=== PATIENT | male | born 1975 | race Caucasian/White ===

== ENCOUNTER 2019-09-10 05:33 | Outpatient (CLI) | payer OTHER ==
[~2019-09-10] VITALS: Ht 188 cm; Wt 106.8 kg
[~2019-09-10 05:33] MED LIST: MECL-124 PO
== END 2019-09-10 16:04 | disposition home or self-care (01) ==
LOC: PREOP 05:33
PROVIDERS: ATTEND Surgery
DX: Z01.818 Encounter for other preprocedural examination (principal)

== ENCOUNTER 2021-01-01 05:31 | Outpatient (RCR) | payer OTHER ==
[~2021-01-01] VITALS: Ht 188 cm; Wt 106.8 kg
== END 2021-01-01 12:34 | disposition home or self-care (01) ==
LOC: PREOP 05:31
PROVIDERS: ATTEND Surgery
DX: Z01.812 Encounter for preprocedural laboratory examination (principal); K21.9 Gastro-esophageal reflux disease without esophagitis; Z20.822 Contact with and (suspected) exposure to COVID-19
CPT/HCPCS: 87635

== ENCOUNTER 2021-01-05 11:26 | Day surgery (SDC) | payer OTHER ==
[~2021-01-05] VITALS: Ht 188 cm; Wt 106.0 kg
[2021-01-05] VITALS (7 sets, daily range): BP systolic 129–140; BP diastolic 72–87
[~2021-01-05 11:26] MED LIST changes: +LACTATED RINGERS 1,000 ML IV ONE
[2021-01-05] MEDS ORDERED: LACTATED RINGERS 1,000 ML IV STA (11:29)
[2021-01-05] MEDS ORDERED: HURRICAINE EXT TUBE (BENZOCAINE) XX PRN (11:30)
[2021-01-05] MEDS ORDERED: proPOfol 200 MG/20 ML (DIPRIVAN) VIAL IV ONE ×2 (12:20→13:00)
[2021-01-05] MEDS ORDERED: MIDAZOLAM 2 MG/2 ML (VERSED) VIAL ONE (12:20)
--- NOTE | 2021-01-05 12:31 | Progress Note-Pre Operative ---
Pre-Operative Progress Note H&P Reviewed The H&P was reviewed, patient examined and no changes noted. Date Seen by Provider: Jan 05, 2021 Time Seen by Provider: 12: Date H&P Reviewed: Jan 05, 2021 Time H&P Reviewed: 12:31 Pre-Operative Diagnosis: gerd n/v POOL WOODARD DO Jan 05, 2021 12:31
[2021-01-05] MEDS ORDERED: HURRICAINE EXT TUBE (BENZOCAINE) ONE (12:49)
--- NOTE | 2021-01-05 13:25 | Progress Note-Post Operative ---
Post-Operative Progess Note Surgeon (s)/Residential Building Inspector (s) Surgeon POOL WOODARD DO Residential Building Inspector: na Pre-Operative Diagnosis gerd n/v Post-Operative Diagnosis esophageal ulcer, hiatal hernia Procedure & Operative Findings Date of Procedure 01/05/21 Procedure Performed/Findings egd c biopsies Anesthesia Type per blending supervisor Estimated Blood Loss Estimated blood loss (mL): minimal Specimens/Packing Specimens Removed antrum, ge at ulcer POOL WOODARD DO Jan 05, 2021 13:25
[2021-01-05] MEDS ORDERED: PANT40TA2 PO (13:26)
[2021-01-05] MEDS ORDERED: SUCR1TAB36 PO (13:26)
--- NOTE | 2021-01-05 13:26 | Discharge Inst-Simple/Standard ---
Discharge Inst-Standard Discharge Medications New, Converted or Re-Newed RX: Transmitted to Pharmacy Patient Instructions/Follow Up Plan of Care/Instructions/FU: 2-3 weeks Araseli Activity as Tolerated: Yes Discharge Diet: Regular Diet (ulcer diet) POOL WOODARD DO Jan 05, 2021 13:26
--- NOTE | 2021-01-05 13:26 | Anesthesia-General Post-Op ---
MAC Patient Condition Mental Status/LOC: Same as Preop Cardiovascular: Satisfactory Nausea/Vomiting: Absent Respiratory: Satisfactory Pain: Controlled Complications: Absent Post Op Complications Complications None Follow Up Care/Instructions Patient Instructions None needed. Anesthesiology Discharge Order Discharge Order Patient is doing well, no complaints, stable vital signs, no apparent adverse anesthesia problems. No complications reported per nursing. PAULINE WAGNER CRNA Jan 05, 2021 13:26
--- NOTE | 2021-01-05 16:15 | OPERATIVE REPORT ---
DATE OF SERVICE: 01/05/2021 PREOPERATIVE DIAGNOSES: Gastroesophageal reflux disease, nausea and vomiting. POSTOPERATIVE DIAGNOSIS: Esophageal ulcer, hiatal hernia, small. PROCEDURE: EGD with biopsies. SURGEON: Pool Marx DO ANESTHESIA: Per DOLL WIG HACKLER. ESTIMATED BLOOD LOSS: Minimal. COMPLICATIONS: None. INDICATIONS: The patient is a 45-year-old male who has been having gastroesophageal reflux disease and significant nausea and vomiting. He understands risks and benefits of procedure and wished to proceed with procedure. Consent was signed in the chart. DESCRIPTION OF PROCEDURE: The patient was taken to the endoscopy suite, placed in left lateral recumbent position. Timeout was performed. Scope was inserted in mouth, down the esophagus to the GE junction, noting an ulcer. Scope was continued to be inserted into the stomach and into the duodenum without difficulty. There were no polyps, masses or ulcerations within the duodenum. Scope was slowly retracted back into the stomach where it was further insufflated. Biopsy of the antrum was obtained. There was a couple of benign appearing polyps in the stomach. No masses, some versus a very slight erythematous changes as well. Scope was retroflexed noting a very small hiatal hernia, no other pathology. Scope was returned to its normal position, slowly withdrawn to distal esophagus again noting the esophageal ulceration and changes consistent with reflux esophagitis. Biopsy of the GE junction at the ulcer was obtained. Scope was then slowly retracted back noting no other pathology. The patient tolerated procedure well without any complications. He was taken to recovery room in stable condition. RECOMMENDATIONS: The patient will be started on Carafate 1 gram four times a day and Protonix 40 mg daily. He will follow up in two to three weeks. We will give him information on ulcer diet. Any change, he should be reevaluated at that time. Job ID: [id number] DocumentID: [id number] Dictated Date: 01/05/2021 13:31:23 Obstetric Assistant Date: 01/05/2021 16:14:33 Dictated By: POOL MARX DO
== END 2021-01-05 14:10 | disposition home or self-care (01) ==
LOC: ENDO 11:26
PROVIDERS: ATTEND Surgery
DX: K21.00 Gastro-esophageal reflux disease with esophagitis, without bleeding (principal); K22.10 Ulcer of esophagus without bleeding; K44.9 Diaphragmatic hernia without obstruction or gangrene; Z90.89 Acquired absence of other organs; Z90.49 Acquired absence of other specified parts of digestive tract; Z82.49 Family history of ischemic heart disease and other diseases of the circulatory system; Z83.3 Family history of diabetes mellitus; Z80.9 Family history of malignant neoplasm, unspecified
CPT/HCPCS: 88305; 88312

== ENCOUNTER 2022-01-28 14:13 | Outpatient (RCR) | payer OTHER ==
[~2022-01-28 14:13] MED LIST changes: -LACTATED RINGERS 1,000 ML IV ONE; +PANT40TA2 PO; +SUCR1TAB36 PO
== END 2022-01-29 | disposition home or self-care (01) ==
PROVIDERS: ATTEND Physical Therapist
DX: M54.50 Low back pain, unspecified (principal)

== ENCOUNTER → 2022-11-01 | Outpatient (RCR) | payer OTHER | END | disposition home or self-care (01) | DX: M54.2 Cervicalgia (principal); M54.50 Low back pain, unspecified ==

== ENCOUNTER 2022-11-08 15:51 | Outpatient (RCR) | payer OTHER ==
[2022-11-18] MEDS ORDERED: MULT-1136 PO (12:28)
[2022-11-18] MEDS ORDERED: FISH1CAP15 PO (12:28)
[2022-11-29] MEDS ORDERED: PANT40TA2 PO (13:44)
== END 2022-11-29 | disposition home or self-care (01) ==
DX: M54.2 Cervicalgia (principal); M54.50 Low back pain, unspecified

== ENCOUNTER 2022-11-16 05:40 | Outpatient (CLI) | payer OTHER ==
[~2022-11-16] VITALS: Ht 188 cm; Wt 109.3 kg
[2022-11-18] MEDS ORDERED: MULT-1136 PO (12:28)
[2022-11-18] MEDS ORDERED: FISH1CAP15 PO (12:28)
== END 2022-11-18 12:31 | disposition home or self-care (01) ==
LOC: PREOP 05:40
PROVIDERS: ATTEND Surgery
DX: Z01.818 Encounter for other preprocedural examination (principal)

== ENCOUNTER 2022-11-29 11:17 | Day surgery (SDC) | payer OTHER ==
[~2022-11-29] VITALS: Ht 188 cm; Wt 109.3 kg
[~2022-11-29 11:17] MED LIST changes: +FISH1CAP15 PO; +MULT-1136 PO
[2022-11-29] MEDS ORDERED: LACTATED RINGERS 1,000 ML IV STA (11:39)
[2022-11-29 11:40] VITALS: BP 125/86
[2022-11-29] MEDS ORDERED: HURRICAINE EXT TUBE (BENZOCAINE) XX PRN (11:45)
[2022-11-29] MEDS ORDERED: MIDAZOLAM 2 MG/2 ML (VERSED) VIAL ONE (11:46)
[2022-11-29] MEDS ORDERED: PROPOFOL INJECTION 50 ML IV ONE (11:46)
--- NOTE | 2022-11-29 11:49 | Progress Note-Pre Operative ---
Pre-Operative Progress Note Date H&P Reviewed: Nov 29, 2022 Time H&P Reviewed: 11:48 History & Physical: H&P Reviewed, Patient Examed, No changes noted Pre-Operative Diagnosis: gerd, hx polyps POOL WOODARD DO Nov 29, 2022 11:49
[2022-11-29] MEDS ORDERED: PANT40TA2 PO (13:44)
[2022-11-29 13:45] VITALS: BP 115/73
--- NOTE | 2022-11-29 13:45 | Anesthesia-General Post-Op ---
MAC Patient Condition Mental Status/LOC: Same as Preop Cardiovascular: Satisfactory Nausea/Vomiting: Absent Respiratory: Satisfactory Pain: Controlled Complications: Absent Post Op Complications Complications None Follow Up Care/Instructions Patient Instructions None needed. Anesthesiology Discharge Order Discharge Order Patient is doing well, no complaints, stable vital signs, no apparent adverse anesthesia problems. No complications reported per nursing. PARI BOLDEN CRNA Nov 29, 2022 13:44
--- NOTE | 2022-11-29 13:45 | Discharge Inst-Simple/Standard ---
Discharge Inst-Standard Patient Instructions/Follow Up Plan of Care/Instructions/FU: 2 weeks Araseli Activity as Tolerated: Yes Discharge Diet: Regular Diet POOL WOODARD DO Nov 29, 2022 13:45
--- NOTE | 2022-11-29 13:46 | Progress Note-Post Operative ---
Post-Operative Progess Note Surgeon (s)/Therapeutic Sales Specialist (s) Surgeon POOL WOODARD DO Therapeutic Sales Specialist: na Pre-Operative Diagnosis gerd, hx polyps Post-Operative Diagnosis reflux esophagitis, colon polyps Procedure & Operative Findings Date of Procedure 11/29/22 Procedure Performed/Findings egd c biopsies, colonoscopy c hot bx polypectomy x 2 Anesthesia Type per coding manager Estimated Blood Loss Estimated blood loss (mL): none Specimens/Packing Specimens Removed antrum, ge POOL WOODARD DO Nov 29, 2022 13:46
[2022-11-29 13:50] VITALS: BP 108/88
[2022-11-29 14:14] VITALS: BP 108/88
--- NOTE | 2022-11-29 17:12 | OPERATIVE REPORT ---
DATE OF SERVICE: 11/29/2022 PREOPERATIVE DIAGNOSES: Gastroesophageal reflux disease, history of polyps. POSTOPERATIVE DIAGNOSES: Reflux esophagitis, colon polyps. PROCEDURES: EGD with biopsies, colonoscopy with hot biopsy polypectomy x2. SURGEON: Pool Marx DO. ANESTHESIA: Per WARD ATTENDANT. ESTIMATED BLOOD LOSS: None. COMPLICATIONS: None. INDICATIONS: The patient is a 47-year-old male with a history of polyps and GERD symptoms. He understands risks and benefits of procedure and wished to proceed. Consent was signed in chart. DESCRIPTION OF PROCEDURE: The patient was taken to endoscopy suite, placed in left lateral recumbent position. Timeout was performed. Scope was inserted in the mouth, down the esophagus, stomach, and into the duodenum without difficulty. There were no polyps, masses or ulcerations within the duodenum. Scope was slowly retracted in the stomach where it was further insufflated. Normal appearance of the antrum. Biopsy of the antrum was obtained. Few benign-appearing polyps. Scope was retroflexed noting no other pathology. Scope was returned to its normal position, slowly withdrawn until the distal esophagus. Biopsy of GE junction was obtained. Changes of reflux esophagitis present. Scope was then slowly retracted back until completely removed, noting no other pathology. Digital rectal exam was performed. No palpable polyps, masses or ulcerations. Scope was inserted in the rectum, advanced all the way to the cecum with minimal difficulty. Prep was adequate. Scope was then slowly retracted back. No polyps, masses or ulcerations in the cecum, ascending, transverse colon, descending colon, and a small polyp was present, which hot biopsy polypectomy was performed. Scope was then continued slowly retracted back. Another polyp in the sigmoid colon, which hot biopsy polypectomy was performed. Scope was then continued slowly retracted back. No polyps, masses or ulcerations in the rectum. Scope was retroflexed noting no other pathology. Scope was returned to its normal position, slowly withdrawn until completely removed. The patient tolerated the procedure well without complications, taken to recovery room in stable condition. RECOMMENDATIONS: The patient will be started on Protonix 40 mg daily. We will see her all symptoms are in a couple of weeks. We will go over pathology. Further recommendation pending biopsy results. The patient will need repeat colonoscopy in 5 years. Any issues before that, be seen at that time. Job ID: [id number] DocumentID: [id number] Dictated Date: 11/29/2022 13:49:14 Tractor Drill Operator Date: 11/29/2022 17:10:00 Dictated By: POOL MARX DO
== END 2022-11-29 14:35 | disposition home or self-care (01) ==
LOC: ENDO 11:17
PROVIDERS: ATTEND Surgery
DX: K52.9 Noninfective gastroenteritis and colitis, unspecified (principal); D12.4 Benign neoplasm of descending colon; D12.5 Benign neoplasm of sigmoid colon; K21.00 Gastro-esophageal reflux disease with esophagitis, without bleeding; K31.7 Polyp of stomach and duodenum; K31.89 Other diseases of stomach and duodenum; E66.9 Obesity, unspecified; Z68.30 Body mass index [BMI] 30.0-30.9, adult

== ENCOUNTER 2022-11-29 20:53 | Emergency (ER) | payer OTHER ==
[2022-11-29] MEDS ORDERED: NS IV 500 ML 500 ML IV SCH (21:30)
--- NOTE | 2022-11-29 21:31 | Diagnostic Imaging Report ---
EXAM: ACUTE ABD SERIES INDICATION: Fever. Recent colonoscopy. COMPARISON: None. FINDINGS: Normal heart size and central pulmonary vascularity. Lungs are clear. No pleural effusion or pneumothorax. No free intraperitoneal air. Nonspecific bowel gas pattern. Cholecystectomy clips. No large stool burden. No acute osseous findings. IMPRESSION: No acute radiographic findings in the chest or abdomen. Dictated by: Dictated on workstation # [id number]
--- NOTE | 2022-11-29 21:57 | ED General ---
General Chief Complaint: Post OP Complications/Pain Stated Complaint: FEVER Nursing Triage Note: TO ED VIA POV AND AMBULATORY TO ROOM 9 WITH C/O TEMP AT HOME OF 104 AND 106 TAKEN WITH TEMPORAL THERMOMETER. PT HAD EGD/COLONOSCOPY THIS AFTERNOON AND DR. WOODARD TOLD HIM TO COME ER FOR HIGH TEMP. PT ALERT, AWAKE, MAKING JOKES, LAUGHING DURING TRIAGE. SKIN PINK, WARM, DRY. TOOK 500MG TYLENOL AT 1810. STATES HE FELT FINE THIS MORNING BEFORE PROCEDURE, BUT NOW "JUST FEELS A LITTLE OFF". Source of Information: Patient, Family (independent history obtained from as well) Exam Limitations: No Limitations History of Present Illness Date Seen by Provider: Nov 29, 2022 Time Seen by Provider: 21:41 Allergies and Home Medications Allergies Coded Allergies: No Known Drug Allergies (Unverified , 08/02/11) Patient Home Medication List Fish Oil/Dha/Epa (Fish Oil 1,200 mg Fish Oil) 1,200 Mg-144 Mg-216 Mg Capsule, 1 EACH PO, (Reported) Entered as Reported by: DEWEY VILLEGAS on 11/18/22 1228 Multivitamin (Multivitamin) 1 Each Tablet, 1 EACH PO, (Reported) Entered as Reported by: DEWEY VILLEGAS on 11/18/22 1228 Pantoprazole Sodium (Protonix) 40 Mg Tablet., 40 MG PO DAILY Prescribed by: POOL WOODARD on 11/29/22 1344 Past Lpifxwq-Tnvksz-Zfzcek Hx Patient Social History Tobacco Use?: No Substance use?: No Alcohol Frequency: Rarely Immunizations Up To Date Tetanus Booster (TDap): Unknown First/Initial COVID19 Vaccinat: YES Second COVID19 Vaccination Phil: YES Third COVID19 Vaccination Date: N/A Seasonal Allergies Seasonal Allergies: Yes Past Medical History Surgeries: Yes (wrist, shoulder, knee) Appendectomy, Gallbladder, Orthopedic Respiratory: No Currently Using CPAP: No Currently Using BIPAP: No Cardiac: No Neurological: No Reproductive Disorders: No Genitourinary: No Gastrointestinal: Yes Gastroesophageal Reflux, Chronic Diarrhea Musculoskeletal: No Endocrine: No HEENT: Yes (CONTACTS) Cancer: No Psychosocial: No Integumentary: No Blood Disorders: No Physical Exam Vital Signs Vital Signs - First Documented Capillary Refill : Less Than 3 Seconds Height, Weight, BMI Height: '" Weight: lbs. oz. kg; 30.92 BMI Method: Progress/Results/Core Measures Suspected Sepsis SIRS Temperature: Pulse: 113 Respiratory Rate: 16 Blood Pressure 111 /81 Mean: 91 Results/Orders My Orders Orders - BREANN KO DO Acute Abd Series (11/29/22 21:17) Vital Signs/I&O 11/29/22 11/29/22 21:06 21:06 Temp 38.6 Pulse 113 Resp 16 B/P (MAP) 111/81 (91) Pulse Ox 94 O2 Delivery Room Air Room Air Capillary Refill : Less Than 3 Seconds Blood Pressure Mean: 91 Departure Impression Primary Impression: Fever Qualified Codes: R50.9 - Fever, unspecified Disposition: 01 HOME, SELF-CARE Condition: Stable Departure-Patient Inst. Referrals: NO,LOCAL PHYSICIAN (PCP) Primary Care Physician Patient Instructions: Fever, Adult ED Add. Discharge Instructions: I think your fever is likely related to a viral illness and not likely from your recent procedure. Take tylenol as needed and increase your fluids. Follow up with your primary doctor for any non emergent needs. Return to the ER for any serious concerns. BREANN KO DO Nov 29, 2022 21:57
[2022-11-29 22:16] VITALS: BP 108/78
== END 2022-11-29 22:16 | disposition home or self-care (01) ==
LOC: EDUNIT# 20:53 → ER 20:54
DX: R50.9 Fever, unspecified (principal)
CPT/HCPCS: 74022

== ENCOUNTER → 2023-04-12 | Outpatient (CLI) | payer OTHER ==
--- NOTE | 2023-04-12 14:49 | Diagnostic Imaging Report ---
PROCEDURE: MRI right joint lower extremity without contrast. TECHNIQUE: Multiplanar, multisequence non contrast-enhanced MRI of the right lower extremity was accomplished. INDICATION: Injury, knee pain There are no prior studies available for comparison. On the sagittal proton dense fat saturated series, the anterior cruciate ligament is indistinct. I suspect that the ACL has been at least partially if not completely torn. There is also a tear involving the midportion and posterior horn of the medial meniscus. There may be a very small tear of the inferior articular surface of the midportion/posterior horn of the lateral meniscus as well. In addition there are vague areas of slightly increased signal involving the lateral aspect of the proximal tibia and to a lesser extent the medial aspect of the proximal tibia. These findings are most likely due to bone edema from a recent contusion and would also suggest that there has been an injury to the ACL. The posterior cruciate ligament, the quadriceps and infrapatellar tendons, the collateral ligaments, the biceps, femoris tendon, the iliotibial band and the medial and lateral patellofemoral ligaments are intact. There is no other abnormal signal arising from the osseous structures to suggest bone edema or fracture. There is mild degenerative disease of the medial compartment of the knee joint and moderate degenerative disease of the patellofemoral space. Chondromalacia of the patella grade 1 is also seen. The lateral compartment is fairly well maintained. There is a small joint effusion present. There is also soft tissue edema about the knee joint. IMPRESSION: 1.The poor visualization of the anterior cruciate would indicate that the ACL is at least partially if not completely torn. There is also a tear of the midportion and posterior horn of the medial meniscus and probably a small tear of the inferior articular surface of the lateral meniscus. Bone contusions involving the proximal tibia are also noted. 2. The other major ligaments and tendons are intact. 3. There is no acute bony abnormality noted otherwise. 4. There is a small joint effusion and soft tissue edema about the knee joint. Dictated by: Dictated on workstation # [id number]
== END ==
LOC: RAD 11:57
PROVIDERS: ATTEND Registered Nurse Critical Care Medicine
DX: S83.8X1A Sprain of other specified parts of right knee, initial encounter (principal); S83.241A Other tear of medial meniscus, current injury, right knee, initial encounter; S80.12XA Contusion of left lower leg, initial encounter; J20.8 Acute bronchitis due to other specified organisms; J02.8 Acute pharyngitis due to other specified organisms; Z20.822 Contact with and (suspected) exposure to COVID-19; Y92.39 Other specified sports and athletic area as the place of occurrence of the external cause
CPT/HCPCS: 73721

== ENCOUNTER 2023-05-25 08:05 | Outpatient (RCR) | payer OTHER | END 2023-06-01 | disposition home or self-care (01) | PROVIDERS: ATTEND Orthopaedic Surgery | DX: M23.611 Other spontaneous disruption of anterior cruciate ligament of right knee (principal) ==

== ENCOUNTER 2023-07-24 08:00 | Outpatient (RCR) | payer OTHER | END 2023-08-01 | disposition home or self-care (01) | PROVIDERS: ATTEND Orthopaedic Surgery | DX: M23.611 Other spontaneous disruption of anterior cruciate ligament of right knee (principal); Z98.890 Other specified postprocedural states ==

== ENCOUNTER 2023-08-30 08:00 | Outpatient (RCR) | payer OTHER | END 2023-08-31 | disposition home or self-care (01) | PROVIDERS: ATTEND Orthopaedic Surgery | DX: M23.611 Other spontaneous disruption of anterior cruciate ligament of right knee (principal); Z98.890 Other specified postprocedural states ==